=== PATIENT | female | born 2000 ===

== ENCOUNTER 2025-06-23 14:15 | Inpatient (IN) | payer OTHER ==
[~2025-06-23] VITALS: Ht 162.6 cm; Wt 93.4 kg
[2025-07-08 14:37] VITALS: BP 127/83
[2025-07-08] MEDS ORDERED: PRENATA CHEWAB1 EACH PO (15:15)
[2025-07-08] MEDS ORDERED: DIALYVITE 800-1 EACH PO (15:15)
[2025-07-08 15:55] LABS: BASO % 0.6 % (0.1-1.2); EOS # 0.22 (0.04-0.54); EOS % 2.3 % (0.7-7.0); LYMPH # 1.91 (1.18-3.74); LYMPH % 20.4 % (19.3-53.1); MEAN PLATELET VOLUME 12.50 fl (9.4-12.4); MONO # 0.70 (0.24-0.82); MONO % 7.5 % (4.7-12.5); NEUT # 6.44 (1.56-6.13); NEUT % 68.7 % (34.0-71.1); RED CELL DISTRIBUTION WIDTH 14.5 % (11.6-14.4)
[2025-07-08 16:16] LABS: INR 0.94
[2025-07-08 16:20] LABS: ALT/SGPT 19.0 U/L (12-78); AST/SGOT 16.0 U/L (15-37); BILIRUBIN TOTAL 0.37 mg/dL (0.3-1.2); BUN CREA RATIO 11.0 (7.0-25.0); CREATININE SERUM 0.57 mg/dL (0.55-1.02); GFR 128.21; GLOBULINA 3.6 G/DL (2.4-3.5); GLUCOSE FASTING 74.0 mg/dL (65-100); OSMOLALITY SERUM 278.0 MOSM/KG (275-295)
[2025-07-08] MEDS ORDERED: RINGERS SOLUTION,LACTATED 1,000 ML IV SCH (16:30)
[2025-07-08] MEDS ORDERED: MISOPROSTOL 25 MCG TABLET VAG ONE (18:15)
[2025-07-08 19:40] VITALS: BP 136/74
[2025-07-08 23:24] VITALS: BP 135/70
[2025-07-09] VITALS (8 sets, daily range): BP systolic 110–156; BP diastolic 52–88
[2025-07-09] MEDS ORDERED: MORPHINE SULFATE 4 MG/ML CARTRIDGE IV PRN (07:30)
[2025-07-09] MEDS ORDERED: OXYTOCIN 500 ML IV ONE (07:30)
[2025-07-09] MEDS ORDERED: OXYTOCIN 10 UNITS/ML VIAL ONE (17:39)
[2025-07-09] MEDS ORDERED: ERYTHROMYCIN BASE OPHT 1GM EACH TUBE OP ONE ×2 (17:40→21:00)
[2025-07-09] MEDS ORDERED: KETOROLAC TROMETHAMINE 30 MG VIAL IV SCH (18:24)
[2025-07-09] MEDS ORDERED: OXYTOCIN 1,000 ML IV ONE (18:30)
[2025-07-09] MEDS ORDERED: OXYTOCIN 10 UNITS/ML VIAL IV SCH (21:00)
[2025-07-10] MEDS ORDERED: KETOROLAC TROMETHAMINE 30 MG VIAL ONE (00:08)
[2025-07-10 01:23] VITALS: BP 112/71
[2025-07-10 04:00] VITALS: BP 128/84
[2025-07-10] MEDS ORDERED: ACETAMINOPHEN 500 MG GEL..CAP PO SCH (06:00)
[2025-07-10 06:21] LABS: BASO % 0.2 % (0.1-1.2); EOS # 0.01 (0.04-0.54); EOS % 0.0 % (0.7-7.0); LYMPH # 2.56 (1.18-3.74); LYMPH % 12.1 % (19.3-53.1); MEAN PLATELET VOLUME 12.10 fl (9.4-12.4); MONO # 1.16 (0.24-0.82); MONO % 5.5 % (4.7-12.5); NEUT # 17.19 (1.56-6.13); NEUT % 81.6 % (34.0-71.1); RED CELL DISTRIBUTION WIDTH 14.4 % (11.6-14.4)
[2025-07-10 08:50] VITALS: BP 123/79; O2SAT 99
[2025-07-10] MEDS ORDERED: DOCUSATE SODIUM 100MG CAP PO SCH (09:00)
[2025-07-10] MEDS ORDERED: GABAPENTIN 300 MG CAPSULE PO SCH (09:00)
[2025-07-10] MEDS ORDERED: PNV,CALCIUM 72/IRON/FOLIC ACID 1 TAB TABLET PO SCH (09:00)
[2025-07-10] MEDS ORDERED: SIMETHICONE 125 MG CAPSULE PO SCH (09:00)
[2025-07-10 13:07] VITALS: BP 121/76; O2SAT 99
[2025-07-10 19:22] VITALS: BP 117/78
[2025-07-11] VITALS: BP 107/52
[2025-07-11 09:42] VITALS: BP 111/65; O2SAT 97
[2025-07-11 13:30] VITALS: BP 115/74
== END 2025-07-11 13:50 | disposition home or self-care (01) | DRG 788 ==
LOC: OB/GYN 07-04 14:15 → LDR 07-08 14:17 → OB/GYN 07-08 14:17 → LDR 07-08 21:00 → O/R 07-09 18:52 → OB/GYN 07-09 19:32
PROVIDERS: Obstetrics & Gynecology Gynecology; ADMIT Obstetrics & Gynecology; ATTEND Obstetrics & Gynecology
PROC: 3E0P7VZ Introduction of Hormone into Female Reproductive, Via Natural or Artificial Opening (ICD-10-PCS; 2025-07-08)
PROC: 4A1HXCZ Monitoring of Products of Conception, Cardiac Rate, External Approach (ICD-10-PCS; 2025-07-08)
PROC: 3E033VJ Introduction of Other Hormone into Peripheral Vein, Percutaneous Approach (ICD-10-PCS; 2025-07-09)
PROC: 10D00Z1 Extraction of Products of Conception, Low, Open Approach (ICD-10-PCS; principal; 2025-07-09 20:15)
DX: O82 Encounter for cesarean delivery without indication (principal); O62.1 Secondary uterine inertia; O64.0XX0 Obstructed labor due to incomplete rotation of fetal head, not applicable or unspecified; Z3A.40 40 weeks gestation of pregnancy; Z37.0 Single live birth

== ENCOUNTER 2025-06-27 09:29 | Outpatient (CLI) | payer OTHER | END 2025-06-27 11:16 | disposition home or self-care (01) | LOC: NST 09:29 | PROVIDERS: ATTEND Obstetrics & Gynecology | DX: Z34.83 Encounter for supervision of other normal pregnancy, third trimester (principal) ==

== ENCOUNTER → 2025-07-04 10:08 | Outpatient (CLI) | payer OTHER | END | disposition home or self-care (01) | LOC: NST 10:08 | PROVIDERS: ATTEND Obstetrics & Gynecology | DX: Z34.83 Encounter for supervision of other normal pregnancy, third trimester (principal) ==